=== PATIENT | female | born 1965 | race Caucasian/White ===

== ENCOUNTER 2016-08-17 19:21 | Emergency (ER) | payer OTHER ==
--- NOTE | 2016-08-17 20:49 | DIAGNOSTIC IMAGING REPORT ---
PROCEDURE: CT HEAD WITHOUT CONTRAST INDICATION: Headache and right facial numbness, initial encounter TECHNIQUE: Noncontrast axial images with sagittal and coronal reformations. COMPARISON: None. FINDINGS: Atrophy. Ventricular system and brain parenchyma are normal. No evidence of acute intracranial process. Visualized mastoids and sinuses are clear. IMPRESSION: 1. Mild cortical atrophy. 2. Findings discussed with Dr. Vital at 08:48 p.m.
--- NOTE | 2016-08-17 22:13 | ED ORDER SUMMARY ---
..... Patient: CRYSTAL CALVO OrderSheet [facility] VisitID: [id number] [address] [place] [address] 50y, F Registration Date/Time: 08/17/2016 ORDER SHEET Weight: 68.0 kg (stated) Allergies: Sulfa Antibiotics GENERAL ORDERS: CT Head wo Cont (R sided facial numbness) Urgent (20:09 08/17/2016 Ernesto Moe) (Ack 20:18 Bon ER Fresh Work Inspector) (20:39 [facility]) MEDICATION ORDERS: Imitrex Subcut 6 mg (NOW) (20:09 08/17/2016 Ernesto Moe) (Ack 20:13 Meghna Cai) (20:20 Meghna Shea.N.) IV FLUIDS: ORDER SHEET NOTES: [Electronically signed by Keturah Mendez R.N. (22:24 08/17/2016)] [Electronically signed by Andre Vital Dr. (22:51 08/17/2016)] [Electronically locked/signed by Keturah Mendez R.N. (22:24 08/17/2016)]
--- NOTE | 2016-08-17 22:13 | ED NURSING NOTES ---
Clinical Report - Nurses [facility] [address] [place] [address] 08/17/2016 19:21 Patient: CRYSTAL CALVO TRIAGE Triage time 19:27 Aug 17 2016. Acuity: LEVEL 3. Chief Complaint: (numbness). --19:30 Iron Stinson R.N. 19:27 08/17/16. BP: 153/83. HR: 69. RR: 18. O2 saturation: 100%. Temp: 98.2 F. --19:30 Iron Stinson R.N. ( pt. states she woke up with a headache today and then started having this numb feeling on the right side for her face. It also traveled down the right side of her body. She currently denies numbness in her right extremities but is concerned about the SOOD and facial numbness.). --19:57 Keturah Mendez R.N. Weight: 68 kg stated. Height/Length: 64 inches Per Patient. BMI: 25.8. --19:30 Iron Stinson R.N. Medications Progesterone. --19:29 Iron Stinson R.N. Allergies Sulfa Antibiotics. --19:28 Iron Stinson R.N. History Arrived by private vehicle. Historian: patient. ( Pt reports numbness to R side of the face, no blurred vision at this time pt is fast exam negative alert and oriented x4). SOCIAL HX: Never smoker. Occasional alcohol use. --19:30 Iron Stinson R.N. Interventions ID band on patient. To treatment room. --19:30 Iron Stinson R.N. PHYSICAL ASSESSMENT Ambulatory to room. ( First contact with pt.). GENERAL / NEURO / PSYCH: Alert. Oriented X 4. Appears in no acute distress. HEENT: No facial asymmetry noted. Mucous membranes are pink. RESPIRATORY: Respirations not labored. CVS: Capillary refill less than 2 seconds. Pulses within normal limits. GI / : Abdomen soft and nontender. SKIN: Skin intact. Skin is warm and dry. --19:54 Keturah Mendez R.N. ( fast exam negative.). --19:57 Keturah Mendez R.N. NURSING PROGRESS NOTES Patient gowned. Head of bed elevated. Two patient identifiers checked. Call light placed in reach. Side rails up x 2. Bed placed in lowest position. Brakes of bed on. Patient ready for evaluation- chart flagged. --19:54 Keturah Mendez R.N. 20:20 08/17/2016 Imitrex (SUMAtriptan Succinate) Subcutaneous 6 mg given. Given in the right upper arm. Allergies verified and confirmed 5 rights. --20:20 Keturah Mendez R.N. 20:35 08/17/2016 Imitrex Subcutaneous Response: no adverse reaction pain is improving. Symptoms have improved. --20:35 Keturah Mendez R.N. 21:20 08/17/16. BP: 131/78. HR: 64. RR: 16. O2 saturation: 100%. --21:21 Keturah Mendez R.N. DISPOSITION / DISCHARGE 22:20. Departure time: 0. Condition at departure: stable. No learning barriers present. Discharge instructions provided and reviewed with the patient. Reviewed medication(s) side effects, precautions, dosing and course information. Prescription(s) given to the patient. Reviewed referral to family practice for followup. Patient verbalized understanding. Written instructions provided in Slovenian. The patient was discharged home and accompanied by commissioning specialist. She left the Emergency Department ambulatory and via private vehicle. Middle [employer] Teacher driving. Medication list reviewed and validated. --22:20 Keturah Mendez R.N. 22:18 08/17/16. BP: 128/72. HR: 68. RR: 16. O2 saturation: 100%. Temp: 98.7 F. Pain level now 07/20. --22:20 Keturah Mendez R.N. Locked/Released at 08/17/2016 22:24 by Keturah Mendez R.N.
--- NOTE | 2016-08-17 22:13 | ED CLINICAL REPORT ---
Clinical Report - Physicians/Mid Levels [facility] [address] [place] [address] 08/17/2016 19:21 Patient: CRYSTAL CALVO Time Seen: 19:26; initial patient contact. Arrived- By private vehicle. Historian- patient. HISTORY OF PRESENT ILLNESS Chief Complaint: PARESTHESIA. The patient has had new onset of numbness of the right face (moderate). No weakness, impaired speech or swallowing, visual disturbance or recent fall. No difficulty walking. This started today and is still present. It was abrupt in onset. At its maximum deficit described as moderate. When seen in the E.D.,deficit described as moderate. No dizziness, altered mental status, seizure or blackouts. Usually is alert and oriented X3 and has normal mobility. Similar symptoms previously: None. Recent medical care: Not recently seen/assessed. REVIEW OF SYSTEMS No fever, head injury, nausea, vomiting or decreased vision. No double vision, eye irritation, alteration in mental status or dizziness. She has had a headache and photophobia. All systems otherwise negative, except as recorded above. PAST HISTORY Negative. Surgeries: No history of previous surgery. SOCIAL HISTORY Never smoker. ADDITIONAL NOTES The nursing notes have been reviewed with agreement regarding the chief complaint, PMH and patient medications and allergies. PHYSICAL EXAM Vital Signs: 08/17/2016 19:27 BP: 153/83. HR: 69. RR: 18. O2 saturation: 100%. Temp: 98.2 F. Have been reviewed. Hypertensive. Heart rate normal. Respiratory rate normal. Temperature normal. Oxygen saturation normal. Appearance: Alert. No acute distress. Head: Head atraumatic. Eyes: Pupils equal, round and reactive to light. ENT: Normal ENT inspection. Airway intact. Neck: Normal inspection. Neck supple. CVS: Normal heart rate and rhythm. Heart sounds normal. Respiratory: No respiratory distress. Breath sounds normal. Skin: Skin warm and dry. Normal skin color. No rash. Neuro: Alert. Oriented X 3. Mood/affect normal. Speech normal. Cranial nerves normal (as tested). No cerebellar findings. No motor deficit. Sensory deficit present. Altered sensation to light touch on the right face. Reflexes normal. LABS, X-RAYS, AND EKG CT Head: (1. Mild cortical atrophy.). Head CT performed without contrast. The study was interpreted by the radiologist and discussed with the radiologist. Interpretation time: 22:12. PROGRESS AND PROCEDURES Course of Care: Imitrex 6 mg subQ given. Symptoms much better. Disposition: Discharged home in good and improved condition. Condition: good. CLINICAL IMPRESSION Episodic cluster headache, poorly controlled. No paroxysmal hemicrania. INSTRUCTIONS Your Current Medications: CONTINUE TAKING THE FOLLOWING MEDICATIONS: Progesterone*. Prescription Medications: Imitrex 50 mg: take 1 tablet orally every 2 hours as needed for migraine headache. Do not take more than 4 tablets in any 24 hour period. Dispense ten (10). One refill. Substitution is permissible. Follow-up: Follow up with your doctor in about two days. Call for an appointment. Screening today revealed the patient's blood pressure to be in the pre-hypertensive range. The patient should follow up with a primary care provider for blood pressure management. (Electronically signed by Andre Vital Dr. 08/17/2016 22:51)
--- NOTE | 2016-08-17 22:13 | ED NURSING NOTES ---
Clinical Report - Nurses [facility] [address] [place] [address] 08/17/2016 19:21 Patient: CRYSTAL CALVO TRIAGE Triage time 19:27 Aug 17 2016. Acuity: LEVEL 3. Chief Complaint: (numbness). --19:30 Iron Stinson R.N. 19:27 08/17/16. BP: 153/83. HR: 69. RR: 18. O2 saturation: 100%. Temp: 98.2 F. --19:30 Iron Stinson R.N. ( pt. states she woke up with a headache today and then started having this numb feeling on the right side for her face. It also traveled down the right side of her body. She currently denies numbness in her right extremities but is concerned about the SOOD and facial numbness.). --19:57 Keturah Mendez R.N. Weight: 68 kg stated. Height/Length: 64 inches Per Patient. BMI: 25.8. --19:30 Iron Stinson R.N. Medications Progesterone. --19:29 Iron Stinson R.N. Allergies Sulfa Antibiotics. --19:28 Iron Stinson R.N. History Arrived by private vehicle. Historian: patient. ( Pt reports numbness to R side of the face, no blurred vision at this time pt is fast exam negative alert and oriented x4). SOCIAL HX: Never smoker. Occasional alcohol use. --19:30 Iron Stinson R.N. Interventions ID band on patient. To treatment room. --19:30 Iron Stinson R.N. PHYSICAL ASSESSMENT Ambulatory to room. ( First contact with pt.). GENERAL / NEURO / PSYCH: Alert. Oriented X 4. Appears in no acute distress. HEENT: No facial asymmetry noted. Mucous membranes are pink. RESPIRATORY: Respirations not labored. CVS: Capillary refill less than 2 seconds. Pulses within normal limits. GI / : Abdomen soft and nontender. SKIN: Skin intact. Skin is warm and dry. --19:54 Keturah Mendez R.N. ( fast exam negative.). --19:57 Keturah Mendez R.N. NURSING PROGRESS NOTES Patient gowned. Head of bed elevated. Two patient identifiers checked. Call light placed in reach. Side rails up x 2. Bed placed in lowest position. Brakes of bed on. Patient ready for evaluation- chart flagged. --19:54 Keturah Mendez R.N. 20:20 08/17/2016 Imitrex (SUMAtriptan Succinate) Subcutaneous 6 mg given. Given in the right upper arm. Allergies verified and confirmed 5 rights. --20:20 Keturah Mendez R.N. 20:35 08/17/2016 Imitrex Subcutaneous Response: no adverse reaction pain is improving. Symptoms have improved. --20:35 Keturah Mendez R.N. 21:20 08/17/16. BP: 131/78. HR: 64. RR: 16. O2 saturation: 100%. --21:21 Keturah Mendez R.N. DISPOSITION / DISCHARGE 22:20. Departure time: 0. Condition at departure: stable. No learning barriers present. Discharge instructions provided and reviewed with the patient. Reviewed medication(s) side effects, precautions, dosing and course information. Prescription(s) given to the patient. Reviewed referral to family practice for followup. Patient verbalized understanding. Written instructions provided in Latvian. The patient was discharged home and accompanied by administrative aide. She left the Emergency Department ambulatory and via private vehicle. Sales Representative Graphic Art driving. Medication list reviewed and validated. --22:20 Keturah Mendez R.N. 22:18 08/17/16. BP: 128/72. HR: 68. RR: 16. O2 saturation: 100%. Temp: 98.7 F. Pain level now 07/20. --22:20 Keturah Mendez R.N. Locked/Released at 08/17/2016 22:24 by Keturah Mendez R.N.
--- NOTE | 2016-08-17 22:13 | ED ORDER SUMMARY ---
..... Patient: CRYSTAL CALVO OrderSheet [facility] VisitID: [id number] [address] [place] [address] 50y, F Registration Date/Time: 08/17/2016 ORDER SHEET Weight: 68.0 kg (stated) Allergies: Sulfa Antibiotics GENERAL ORDERS: CT Head wo Cont (R sided facial numbness) Urgent (20:09 08/17/2016 Ernesto Moe) (Ack 20:18 Bon ER Financial Aid) (20:39 [facility]) MEDICATION ORDERS: Imitrex Subcut 6 mg (NOW) (20:09 08/17/2016 Ernesto Moe) (Ack 20:13 Meghna Cai) (20:20 Meghna Shea.N.) IV FLUIDS: ORDER SHEET NOTES: [Electronically signed by Keturah Mendez R.N. (22:24 08/17/2016)] [Electronically signed by Andre Vital Dr. (22:51 08/17/2016)] [Electronically locked/signed by Keturah Mendez R.N. (22:24 08/17/2016)]
--- NOTE | 2016-08-17 22:13 | ED CLINICAL REPORT ---
Clinical Report - Physicians/Mid Levels [facility] [address] [place] [address] 08/17/2016 19:21 Patient: CRYSTAL CALVO Time Seen: 19:26; initial patient contact. Arrived- By private vehicle. Historian- patient. HISTORY OF PRESENT ILLNESS Chief Complaint: PARESTHESIA. The patient has had new onset of numbness of the right face (moderate). No weakness, impaired speech or swallowing, visual disturbance or recent fall. No difficulty walking. This started today and is still present. It was abrupt in onset. At its maximum deficit described as moderate. When seen in the E.D.,deficit described as moderate. No dizziness, altered mental status, seizure or blackouts. Usually is alert and oriented X3 and has normal mobility. Similar symptoms previously: None. Recent medical care: Not recently seen/assessed. REVIEW OF SYSTEMS No fever, head injury, nausea, vomiting or decreased vision. No double vision, eye irritation, alteration in mental status or dizziness. She has had a headache and photophobia. All systems otherwise negative, except as recorded above. PAST HISTORY Negative. Surgeries: No history of previous surgery. SOCIAL HISTORY Never smoker. ADDITIONAL NOTES The nursing notes have been reviewed with agreement regarding the chief complaint, PMH and patient medications and allergies. PHYSICAL EXAM Vital Signs: 08/17/2016 19:27 BP: 153/83. HR: 69. RR: 18. O2 saturation: 100%. Temp: 98.2 F. Have been reviewed. Hypertensive. Heart rate normal. Respiratory rate normal. Temperature normal. Oxygen saturation normal. Appearance: Alert. No acute distress. Head: Head atraumatic. Eyes: Pupils equal, round and reactive to light. ENT: Normal ENT inspection. Airway intact. Neck: Normal inspection. Neck supple. CVS: Normal heart rate and rhythm. Heart sounds normal. Respiratory: No respiratory distress. Breath sounds normal. Skin: Skin warm and dry. Normal skin color. No rash. Neuro: Alert. Oriented X 3. Mood/affect normal. Speech normal. Cranial nerves normal (as tested). No cerebellar findings. No motor deficit. Sensory deficit present. Altered sensation to light touch on the right face. Reflexes normal. LABS, X-RAYS, AND EKG CT Head: (1. Mild cortical atrophy.). Head CT performed without contrast. The study was interpreted by the radiologist and discussed with the radiologist. Interpretation time: 22:12. PROGRESS AND PROCEDURES Course of Care: Imitrex 6 mg subQ given. Symptoms much better. Disposition: Discharged home in good and improved condition. Condition: good. CLINICAL IMPRESSION Episodic cluster headache, poorly controlled. No paroxysmal hemicrania. INSTRUCTIONS Your Current Medications: CONTINUE TAKING THE FOLLOWING MEDICATIONS: Progesterone*. Prescription Medications: Imitrex 50 mg: take 1 tablet orally every 2 hours as needed for migraine headache. Do not take more than 4 tablets in any 24 hour period. Dispense ten (10). One refill. Substitution is permissible. Follow-up: Follow up with your doctor in about two days. Call for an appointment. Screening today revealed the patient's blood pressure to be in the pre-hypertensive range. The patient should follow up with a primary care provider for blood pressure management. (Electronically signed by Andre Vital Dr. 08/17/2016 22:51)
--- NOTE | 2016-08-17 22:52 | ED MAR SUMMARY ---
..... Medication Administration Record [facility] [address] [place] [address] Patient: CRYSTAL CALVO Visit ID: [id number] 50y, F Weight: 68.0 kg Height/Length: 64 in BMI: 25.8 ALLERGIES: Sulfa Antibiotics Given 20:20 08/17/2016 Keturah Mendez R.N. Medication Administered: IMITREX [SUBCUTANEOUS] (SUMATRIPTAN SUCCINATE), Dose: 6 mg Subcutaneous. Medication Ordered: Imitrex Subcut 6 mg (NOW).
--- NOTE | 2016-08-17 22:52 | ED DISCHARGE INSTRUCTIONS ---
Patient: CRYSTAL CALVO General Instructions [facility] VisitID: [id number] [place] [address] 50y, F Registration Date/Time: 08/17/2016 Episodic cluster headache, poorly controlled. No paroxysmal hemicrania. INSTRUCTIONS Your Current Medications: CONTINUE TAKING THE FOLLOWING MEDICATIONS: Progesterone*. Prescription Medications: Imitrex 50 mg: take 1 tablet orally every 2 hours as needed for migraine headache. Do not take more than 4 tablets in any 24 hour period. Dispense ten (10). One refill. Substitution is permissible. Follow-up: Follow up with your doctor in about two days. Call for an appointment. Screening today revealed the patient's blood pressure to be in the pre-hypertensive range. The patient should follow up with a primary care provider for blood pressure management. ADDITIONAL INFORMATION Headache Cluster A cluster headache is different from migraine or tension headaches. A cluster headache starts suddenly without any warning sign. The pain can become severe within minutes. The headache is often brief, usually lasting only 15 minutes; but it can continue for several hours. The pain is centered around one eye. There may be tears coming from that eye. That eyelid may become droopy with redness and swelling around the eye. A stuffy or runny nose on the affected side is also common. There may be several headaches in one 24-hour period. These may return at the same time of day during the cluster period. A cluster headache ends as suddenly as it began. It often leaves you feeling exhausted for some time afterwards. Cluster headaches often occur in the nighttime, during certain times of the year that is unique to you. A cluster period ranges from a few weeks up to a few months. Then, they may not recur again for months or years. Possible triggers include alcohol and cigarette smoking. Even one drink can trigger a headache during the cluster period. Other potential triggers include interrupted sleep patterns. Certain medicines such as nitroglycerin can also cause a cluster headache. If your headaches are brief (15 minutes or less), [id number] medicines wont help,since it takes 20-30 minutes for these medicines to start working. Prescription medicines by injection or nasal spray can stop a headache (called abortive treatment). Preventive treatments (such as steroids, and anti-seizure medicines) can help reduce the number of headaches during a cluster period. Use of oxygen or a nerve stimulator may shorten each attack and reduce the severity. In some people with frequent and severe symptoms, surgery may be used to disrupt part of the local nerve conducting the pain signals.These preventive treatments are usually provided by specialists such as a neurologist or neurosurgeon. Home Care: If you were given pain medicine for this headache, do not drive yourself home. Arrange for a ride, instead. When you get home, try to sleep. You should feel much better when you wake up. If your doctor has prescribed preventive medicines, take them as directed. If abortive medicines were prescribed be sure to carry these with you to take at first sign of the headache. Stick to a regular sleep schedule. Avoid afternoon naps during a cluster period. If you have sleep apnea, talk to your doctor about treatment for this condition since this greatly interferes with sleep patterns. Limit exposure to fumes from gasoline, oil-based paints and the like. Avoid drinking alcohol and smoking during a cluster period. Be cautious when traveling to high altitudes. The reduced oxygen may trigger a headache. Use sunglasses to avoid glare and bright lights. Keep a headache journal. Record the date and time of each headache. Describe the quality of the pain (severity, location, how long it lasts), your response to any medicines to control the pain, possible triggers (something you ate or did just before the attack). Share this information with your doctor to help him design the best treatment plan for you. Talking to a counselor, therapist or support group may help you cope with the effects of cluster headache on your lifestyle. Follow Up with your doctor or as advised by our staff. [NOTE: If you had a CT scan or MRI, this will be reviewed by a specialist. You will be notified of any new findings that may affect your care.] Get Prompt Medical Attention if any of the following occur: Sudden, severe headache, worse than any you have had before Headache with a fainting spell Unexplained fever greater than 100.0 F (37.8 C) Stiff neck or rash Weakness of an arm or leg or one side of the face Difficulty with speech or vision Sumatriptan Succinate Oral tablet What is this medicine? SUMATRIPTAN (concetta ma TRIP velasquez) is used to treat migraines with or without aura. An aura is a strange feeling or visual disturbance that warns you of an attack. It is not used to prevent migraines. How should I use this medicine? Take this medicine by mouth with a glass of water. Follow the directions on the prescription label. This medicine is taken at the first symptoms of a migraine. It is not for everyday use. If your migraine headache returns after one dose, you can take another dose as directed. You must leave at least 2 hours between doses, and do not take more than 100 mg as a single dose. Do not take more than 200 mg total in any 24 hour period. If there is no improvement at all after the first dose, do not take a second dose without talking to your doctor or health transitions rn care coordinator. Do not take your medicine more often than directed. Talk to your title one reading teacher regarding the use of this medicine in children. Special care may be needed. What side effects may I notice from receiving this medicine? Side effects that you should report to your doctor or health transitions rn care coordinator as soon as possible: allergic reactions like skin rash, itching or hives, swelling of the face, lips, or tongue breathing problems changes in vision chest or throat pain, tightness fast, slow, or irregular heart beat hallucinations increased or decreased blood pressure problems with balance, talking, walking seizures severe stomach pain and cramping, bloody diarrhea tingling, pain, or numbness in the face, hands or feet Side effects that usually do not require medical attention (report to your doctor or health transitions rn care coordinator if they continue or are bothersome): drowsiness feeling warm, flushing, or redness of the face muscle pain or cramps nausea, vomiting, diarrhea or stomach upset weak or tired What may interact with this medicine? Do not take this medicine with any of the following medicines: amphetamine or cocaine dihydroergotamine, ergotamine, ergoloid mesylates, methysergide, or ergot-type medication - do not take within 24 hours of taking sumatriptan feverfew MAOIs like Carbex, Eldepryl, Marplan, Nardil, and Parnate - do not take sumatriptan within 2 weeks of stopping MAOI therapy other migraine medicines like almotriptan, eletriptan, naratriptan, rizatriptan, zolmitriptan - do not take within 24 hours of taking sumatriptan tryptophan This medicine may also interact with the following medications: lithium medicines for mental depression, anxiety or mood problems medicines for weight loss such as dexfenfluramine, dextroamphetamine, fenfluramine, or sibutramine [place]'s wort What if I miss a dose? This does not apply; this medicine is not for regular use. Where should I keep my medicine? Keep out of the reach of children. Store at room temperature between 2 and 30 degrees C (36 and 86 degrees F). Throw away any unused medicine after the expiration date. What should I tell my health care provider before I take this medicine? They need to know if you have any of these conditions: bowel disease or colitis diabetes family history of heart disease fast or irregular heart beat heart or blood vessel disease, angina (chest pain), or previous heart attack high blood pressure high cholesterol history of stroke, transient ischemic attacks (TIAs or mini-strokes), or intracranial bleeding kidney or liver disease overweight poor circulation postmenopausal or surgical removal of uterus and ovaries Raynaud's disease seizure disorder an unusual or allergic reaction to sumatriptan, other medicines, foods, dyes, or preservatives or trying to get breast-feeding What should I watch for while using this medicine? Only take this medicine for a migraine headache. Take it if you get warning symptoms or at the start of a migraine attack. It is not for regular use to prevent migraine attacks. You may get drowsy or dizzy. Do not drive, use machinery, or do anything that needs mental alertness until you know how this medicine affects you. To reduce dizzy or fainting spells, do not sit or stand up quickly, especially if you are an older patient. Alcohol can increase drowsiness, dizziness and flushing. Avoid alcoholic drinks. Smoking cigarettes may increase the risk of heart-related side effects from using this medicine. You have been given the following additional information: Headache, Cluster Sumatriptan Succinate Oral tablet (Electronically signed by Andre Vital Dr. 08/17/2016 22:51)
--- NOTE | 2016-08-17 22:52 | ED MAR SUMMARY ---
..... Medication Administration Record [facility] [address] [place] [address] Patient: CRYSTAL CALVO Visit ID: [id number] 50y, F Weight: 68.0 kg Height/Length: 64 in BMI: 25.8 ALLERGIES: Sulfa Antibiotics Given 20:20 08/17/2016 Keturah Mendez R.N. Medication Administered: IMITREX [SUBCUTANEOUS] (SUMATRIPTAN SUCCINATE), Dose: 6 mg Subcutaneous. Medication Ordered: Imitrex Subcut 6 mg (NOW).
--- NOTE | 2016-08-17 22:52 | ED MED RECONCILIATION SUMMARY ---
Patient: CRYSTAL CALVO Medication Reconciliation Report [facility] VisitID: [id number] [address] [place] [address] 50y, F Registration Date/Time: 08/17/2016 Weight: 68.0 kg Height/Length: 64 in. BMI: 25.8 ALLERGIES: Sulfa Antibiotics The patient's Home Medications are listed below: CONTINUE TAKING THE FOLLOWING MEDICATIONS: Progesterone The source(s) of the original Home Medication information: Not obtained. The following Medications were given to the patient in the Emergency Department: Imitrex [Subcutaneous] Subcutaneous 6 mg, administered: 08/17/2016 8:20:00 PM The following Medications were prescribed to the patient: Imitrex 50 mg: take 1 tablet orally every 2 hours as needed for migraine headache. Do not take more than 4 tablets in any 24 hour period. Dispense ten (10). One refill. Substitution is permissible. -- Andre Vital Dr.
--- NOTE | 2016-08-17 22:52 | ED MED RECONCILIATION SUMMARY ---
Patient: CRYSTAL CALVO Medication Reconciliation Report [facility] VisitID: [id number] [address] [place] [address] 50y, F Registration Date/Time: 08/17/2016 Weight: 68.0 kg Height/Length: 64 in. BMI: 25.8 ALLERGIES: Sulfa Antibiotics The patient's Home Medications are listed below: CONTINUE TAKING THE FOLLOWING MEDICATIONS: Progesterone The source(s) of the original Home Medication information: Not obtained. The following Medications were given to the patient in the Emergency Department: Imitrex [Subcutaneous] Subcutaneous 6 mg, administered: 08/17/2016 8:20:00 PM The following Medications were prescribed to the patient: Imitrex 50 mg: take 1 tablet orally every 2 hours as needed for migraine headache. Do not take more than 4 tablets in any 24 hour period. Dispense ten (10). One refill. Substitution is permissible. -- Andre Vital Dr.
== END 2016-08-17 22:20 | disposition home or self-care (01) ==
LOC: ED SRH 19:21
DX: G44.011 Episodic cluster headache, intractable (principal); Z88.2 Allergy status to sulfonamides

== ENCOUNTER 2016-09-29 10:07 | Outpatient (CLI) | payer OTHER ==
--- NOTE | 2016-09-29 11:01 | DIAGNOSTIC IMAGING REPORT ---
PROCEDURE: MG BILATERAL SCREENING W/CAD INDICATION: SCREENING TECHNIQUE: Bilateral CC and MLO digital views. COMPARISON: Compared to 09/30/2015, 09/26/2014, and 09/27/2013. FINDINGS: Computer-aided detection applied. Moderately dense with a few dystrophic calcifications. No change. IMPRESSION: 1. Negative mammogram. RESULT CODE: 1- Negative. A. A negative report should not delay biopsy if a dominant or clinically suspicious mass is present. 10-15% of cancers are not identified by x-ray. B. A negative report may reinforce clinical impression. C. Adenosis and dense breasts may obscure an underlying neoplasm. D. False positive reports average 6-10%. E.. A yearly screening mammogram is recommended. A reminder letter will be scheduled.
== END 2016-09-29 23:00 ==
LOC: MAM SRH 10:07
DX: Z12.31 Encounter for screening mammogram for malignant neoplasm of breast (principal)